=== PATIENT | female | born 1935 | race Caucasian/White ===

== ENCOUNTER → 2018-11-12 | Outpatient (CLI) | payer MEDICARE, BC ==
--- NOTE | 2018-11-12 15:50 | Diagnostic Imaging Report ---
INDICATION: Dry cough. TIME OF EXAM: 2:02 PM COMPARISON: No prior studies are available for comparison. FINDINGS: The heart size is normal. Lungs are hyperinflated consistent with COPD. No infiltrates are seen. Vague density in the right upper lobe is seen overlying the right sixth posterior rib. It is uncertain if this density arises from the rib or within the pulmonary parenchyma. Tiny density left upper lobe is also seen peripherally, indeterminate. There is no effusion. No pneumothorax is detected. IMPRESSION: Bilateral densities, perhaps granulomas. Followup could be performed to confirm stability. No acute features detected. Dictated by: Dictated on workstation # [id number]
== END ==
LOC: RAD FS 13:43
PROVIDERS: ATTEND Otolaryngology Otolaryngology/Facial Plastic Surgery
DX: J98.4 Other disorders of lung (principal); R05 Cough
CPT/HCPCS: 71046

== ENCOUNTER → 2022-03-11 | Outpatient (CLI) | payer MEDICARE ==
--- NOTE | 2022-03-11 11:36 | Diagnostic Imaging Report ---
INDICATION: Low back pain. Time of Exam: 10:54 AM 3 views of the lumbar spine were obtained. Curvature and alignment is normal. There is a compression fracture deformity involving the L4 vertebral body, age indeterminate. No retropulsion is seen. Remaining lumbar vertebrae show normal stature. There is severe multilevel degenerative disc and facet disease. Abdominal aorta is calcified. IMPRESSION: Severe multilevel lumbar spondylosis. There is a compression deformity of L4 vertebral body, age indeterminate. If there is concern for acuity, MRI could be performed for further evaluation. Dictated by: Dictated on workstation # [id number]
== END ==
LOC: RAD FS 10:42
PROVIDERS: ATTEND Nurse Practitioner Family
DX: M48.56XA Collapsed vertebra, not elsewhere classified, lumbar region, initial encounter for fracture (principal); M47.816 Spondylosis without myelopathy or radiculopathy, lumbar region
CPT/HCPCS: 72100

== ENCOUNTER 2022-03-31 09:02 | Emergency (ER) | payer MEDICARE ==
[~2022-03-31] VITALS: Ht 160 cm; Wt 54.0 kg
[2022-03-31] MEDS ORDERED: KETOROLAC 30 MG/ML VIAL IVP STA (09:16)
--- NOTE | 2022-03-31 09:24 | ED Fall/Injury ---
General Chief Complaint: Back Problems Stated Complaint: FALL Nursing Triage Note: PT REPORTS SHE WAS GETTING READY TO GO DO SOME YARD WORK AND SHE GOT DIZZY AND FELL. SHE DENIES PAIN UNLESS SHE MOVES. SHE REPORTS LOW BACK PAIN THAT RADIATES INTO HER LEFT LEG. Source: patient, EMS History of Present Illness Date Seen by Provider: Mar 31, 2022 Time Seen by Provider: 09:02 Initial Comments 86-year-old female presenting by EMS with complaints of low back pain after standing height fall at home. She states that she has not had much appetite and not been eating or drinking well since her recently . She initially had some pain going into her left leg with sitting up however she denies that now. She states that when she tries to stand or bear weight she has pain in the right greater than left low back and hip. She denies any pain or burning with urination. She has had no head injury or loss of consciousness. She denies having any chest pain, cough, shortness of breath, abdominal pain, fever, chills. She did have an episode of vomiting after she fell. She states that what she vomited was more mucus. She has had some constipation and blames it on not eating or drinking much since her passed. She states she has had other falls and that it is not uncommon for her to get weak and fall to ground. She had imaging of her Lumbar spine March 11 that showed age indeterminate compression fracture of the L4 vertebra. Location Injury Occurred: home Occurred: just prior to arrival Severity: moderate Injuries/Pain Location: back (low back and R greater than L hip pain, worse with standing) Context: other (states she just felt weak and fell to the ground. She denies chest pain, dizziness, light headed sensation.) Loss of Consciousness: no loss of consciousness Modifying Factors: Worse With Movement Associated Symptoms (Fall): No Abdominal Pain, No Chest Pain, No Confusion, No Dizziness, No Headache, No Lightheadedness, No Muscle Spasms; Nausea/Vomiting (x 1 after fall); No Neck Pain, No Ringing in Ears, No Seizures, No Shortness of Air, No Slurred Speech; Trouble Walking (due to low back pain and bilateral hip pain); No Vision Changes Allergies and Home Medications Allergies Coded Allergies: No Known Drug Allergies (Unverified , 03/31/22) Patient Home Medication List Home Medication List Reviewed: Yes Review of Systems Review of Systems Constitutional: No chills, No diaphoresis, No dizziness, No fever Eyes: Denies Blurred Vision, Denies Photophobia, Denies Vision Changes Ears, Nose, Mouth, Throat: denies ear pain, denies ear discharge, denies nose pain, denies nose discharge, denies epistaxis Respiratory: No cough, No hemoptysis, No short of breath, No stridor, No wheezing Cardiovascular: No chest pain Gastrointestinal: see HPI; No abdominal pain, No diarrhea; loss of appetite Genitourinary: No dysuria, No frequency Musculoskeletal: see HPI Skin: No change in color, No rash Psychiatric/Neurological: Denies Headache, Denies Numbness, Denies Paresthesia Past Nuqgvvi-[id number]-Xgeoqt Hx Patient Social History Tobacco Use?: No Use of E-Cig and/or Vaping dev: No Substance use?: No Alcohol Use?: No Pt feels they are or have been: No Immunizations Up To Date First/Initial COVID19 Vaccinat: 2020 Second COVID19 Vaccination Ronn: 2020 COVID19 Vaccine Civil Engineering Project Manager: KEIRA Past Medical History Surgeries: Yes Orthopedic (bilateral hips, lumbar spine) Physical Exam Vital Signs Vital Signs - First Documented 03/31/22 09:07 Temp 36.8 Pulse 52 Resp 20 B/P (MAP) 169/59 (95) Pulse Ox 94 O2 Delivery Room Air Capillary Refill : Less Than 3 Seconds Height, Weight, BMI Height: '" Weight: lbs. oz. kg; 21.00 BMI Method: General Appearance: WD/WN, no apparent distress HEENT: PERRL/EOMI, pharynx normal Neck: non-tender, full range of motion, supple, normal inspection Cardiovascular: normal peripheral pulses, regular rate, rhythm Respiratory: chest non-tender, lungs clear, normal breath sounds, no respiratory distress, no accessory muscle use Gastrointestinal: normal bowel sounds, non tender, soft, no pulsatile mass Rectal: deferred Back: no CVA tenderness, no vertebral tenderness; No muscle spasm, No vertebral tenderness; other (right lower back pain with palpation over iliac crest) Extremities: normal range of motion, non-tender, no pedal edema, no calf tenderness, normal capillary refill Neurologic/Psychiatric: contracting analyst II-XII nml as tested, no motor/sensory deficits, alert, oriented x 3 Skin: normal color, warm/dry Luis Armando Coma Score Best Eye Response: (4) Open Spontaneously Best Verbal Response: (5) Oriented Best Motor Response: (6) Obeys Commands [place] Total: 15 Progress/Results/Core Measures Results/Orders Lab Results Laboratory Tests Test 03/31/22 09:15 03/31/22 09:45 Range/Units White Blood Count 7.2 4.3-11.0 10^3/uL Red Blood Count 3.80 3.80-5.11 10^6/uL Hemoglobin 12.1 11.5-16.0 g/dL Hematocrit 37 35-52 % Mean Corpuscular Volume 98 80-99 fL Mean Corpuscular Hemoglobin 32 25-34 pg Mean Corpuscular Hemoglobin Concent 33 32-36 g/dL Red Cell Distribution Width 14.2 10.0-14.5 % Platelet Count 219 130-400 10^3/uL Mean Platelet Volume 10.5 9.0-12.2 fL Immature Granulocyte % (Auto) 1 % Neutrophils (%) (Auto) 58 42-75 % Lymphocytes (%) (Auto) 33 12-44 % Monocytes (%) (Auto) 9 0-12 % Eosinophils (%) (Auto) 0 0-10 % Basophils (%) (Auto) 0 0-10 % Neutrophils # (Auto) 4.2 1.8-7.8 10^3/uL Lymphocytes # (Auto) 2.4 1.0-4.0 10^3/uL Monocytes # (Auto) 0.6 0.0-1.0 10^3/uL Eosinophils # (Auto) 0.0 0.0-0.3 10^3/uL Basophils # (Auto) 0.0 0.0-0.1 10^3/uL Immature Granulocyte # (Auto) 0.0 0.0-0.1 10^3/uL Sodium Level 138 135-145 MMOL/L Potassium Level 4.5 3.6-5.0 MMOL/L Chloride Level 102 98-107 MMOL/L Carbon Dioxide Level 23 21-32 MMOL/L Anion Gap 13 5-14 MMOL/L Blood Urea Nitrogen 35 H 7-18 MG/DL Creatinine 1.74 H 0.60-1.30 MG/DL Estimat Glomerular Filtration Rate 28 BUN/Creatinine Ratio 20 Glucose Level 108 H 70-105 MG/DL Calcium Level 9.0 8.5-10.1 MG/DL Corrected Calcium 8.9 8.5-10.1 MG/DL Total Bilirubin 0.3 0.1-1.0 MG/DL Aspartate Amino Transf (AST/SGOT) 27 5-34 U/L Alanine Aminotransferase (ALT/SGPT) 20 0-55 U/L Alkaline Phosphatase 64 40-136 U/L Total Protein 6.8 6.4-8.2 GM/DL Albumin 4.1 3.2-4.5 GM/DL Lipase 74 8-78 U/L Urine Color YELLOW Urine Clarity SL CLOUDY Urine pH 5.0 5-9 Urine Specific [place] 1.020 1.016-1.022 Urine Protein NEGATIVE NEGATIVE Urine Glucose (UA) NEGATIVE NEGATIVE Urine Ketones NEGATIVE NEGATIVE Urine Nitrite NEGATIVE NEGATIVE Urine Bilirubin NEGATIVE NEGATIVE Urine Urobilinogen 0.2 < = 1.0 MG/DL Urine Leukocyte Esterase 1+ H NEGATIVE Urine RBC (Auto) NEGATIVE NEGATIVE Urine RBC NONE /HPF Urine WBC 0-2 /HPF Urine Squamous Epithelial Cells 0-2 /HPF Urine Crystals NONE /LPF Urine Bacteria TRACE /HPF Urine Casts PRESENT /LPF Urine Hyaline Casts 0-2 H /LPF Urine Mucus NEGATIVE /LPF Urine Culture Indicated NO My Orders Orders - CHINTAN GAR MD Comprehensive Metabolic Panel (03/31/22 09:16) Lipase (03/31/22 09:16) Ua Culture If Indicated (03/31/22 09:16) Ed Iv/Invasive Line Start (03/31/22 09:16) Cbc With Automated Diff (03/31/22 09:16) Ketorolac Injection (Toradol Injection) (03/31/22 09:16) Ct Lumbar Spine Wo (03/31/22 09:16) Ct Pelvis Wo (03/31/22 09:16) Vital Signs/I&O 03/31/22 09:07 Temp 36.8 Pulse 52 Resp 20 B/P (MAP) 169/59 (95) Pulse Ox 94 O2 Delivery Room Air Blood Pressure Mean: 95 Progress Progress Note #1: Progress Note Check basic labs and image her lumbar spine and pelvis to evaluate for possible acute compression fracture or complication with her hardware from prior hip replacement. Try Toradol 15 mg IV x1 to help with pain. Differential diagnosis includes compression fracture, UTI, dehydration, electrolyte imbalance Progress Note #2: Time: 09:51 Progress Note Labs shows no acute significant abnormality on the CBC. Chemistry appear stable other than she does have an elevated BUN of 35 and creatinine of 1.79. Unknown if this is new or chronic. Awaiting urinalysis and CT scan of the lumbar spine and pelvis. Progress Note #3: Time: 10:[address] of the lumbar spine shows chronic compression fracture of L2, L4, S1. There is no acute fractures. She has severe degenerative changes as well. Urinalysis was slightly concentrated with a specific gravity of 1.020. She had 1+ leukocyte esterase but no bacteria, white blood cells, nitrates. Will encourage patient to drink more fluids and check back with call clinic about her renal insufficiency and the compression fractures Progress Note #4: Time: :[address] of the pelvis was read out as no acute fracture or hardware malfunction. She had some presacral soft tissue swelling but no definite acute fracture. The degenerative changes of the lumbar spine and sacral area were evident again on this imaging. Update patient and spiritual counselor on follow-up with the primary care provider about her bradycardia, renal insufficiency and chronic compression fractures in her spine. Even with sinus bradycardia her blood pressure has been stable or elevated. She has never been hypotensive here in the ED. She was able to get up from the bed with some assistance and get to the commode. Diagnostic Imaging Diagonstic Imaging: CT Plain Films/CT/US/NM/MRI: pelvis (And lumbar spine) Comments NAME: JONO NOOYLA I MED REC#: [id number] PT STATUS: REG ER : 1935 PHYSICIAN: CHINTAN GAR MD ADMIT DATE: 03/31/22/ER FS Draft Date of Exam:03/31/22 CT LUMBAR SPINE WO CLINICAL INDICATION: Patient is status post post fall. Patient with low back pain and bilateral hip pain right side greater than left. EXAM: Axial CT scan of the lumbar spine performed without IV contrast. Sagittal and coronal reformatted images are created. Auto Exposure Controls were utilized during the CT exam to meet ALARA standards for radiation dose reduction. COMPARISON: X-ray of the lumbar spine dated 03/11/2022. FINDINGS: There is a transitional lumbosacral vertebra which will be designated as S1. There is no acute lumbar spine fracture or dislocation. There is a chronic compression deformity involving the L2, L4, and S1 vertebra. There is sclerosis involving the upper aspect of S1 vertebra. There are hypertrophic spurs throughout cervical spine and facet arthropathy. There are flowing osteophytes seen involving the thoracolumbar region. There is no significant paraspinal soft tissue abnormality visualized. Lung bases are clear. There is a partially visualized cyst involving the right kidney measuring at least 4.7 cm. L1-L2: There is subtle grade 1 retrolisthesis of L1 on L2. There is diffuse disk bulge. There is mild right neural foramen narrowing and mild to moderate left neural foramen narrowing. There is no significant central canal stenosis. L2-L3: There is diffuse disk bulge and severe bilateral facet arthropathy. There is severe central canal stenosis and severe bilateral neural foramen narrowing. L3-L4: There is diffuse disk bulge with moderate to severe loss of disk space height. There is severe bilateral facet arthropathy/hypertrophy. There is at least moderate central canal stenosis. There is mild to moderate right neural foramen narrowing and severe left neural foramen narrowing. L4-L5: There is diffuse disk bulge with mild to moderate loss of disk space height. There is severe bilateral facet arthropathy/hypertrophy. There is severe bilateral neural foramen narrowing. There is at least mild central canal narrowing. L5-S1: There is no significant central canal or neural foramen narrowing. IMPRESSION: 1: There is no acute lumbar spine fracture. 2: There are chronic compression fracture deformities involving the L2, L4, and S1 vertebra. 3: There is severe lumbar spine degenerative disease. Dictated on workstation # [id number] Dict: 03/31/22 0950 Trans: 03/31/[address] [facility] [id number] Interpreted by: MEME BLANK MD Electronically signed by: NAME: JONO NOYOLA I [facility] REC#: [id number] PT STATUS: REG ER : 1935 PHYSICIAN: CHINTAN GAR MD ADMIT DATE: 03/31/22/ER FS Draft Date of Exam:03/31/22 CT PELVIS WO PROCEDURE: CT pelvis without contrast. TECHNIQUE: Multiple contiguous axial images were obtained through the pelvis without the use of intravenous contrast. Sagittal and coronal reformations were performed. Auto Exposure Controls were utilized during the CT exam to meet ALARA standards for radiation dose reduction. INDICATION: Fall with pelvic and bilateral hip pain. There has been total hip arthroplasty performed bilaterally. Though artifact in this region does limit assessment. There is rather advanced degenerative findings in the lower lumbar spine with advanced disc bulging and probable protrusion at the L4-L5 level. There is irregularity in the right sacral ala, which may be due to old fracture. No acute fracture line is identified. Sacroiliac joints and pubic symphysis are intact. There is mild density in the presacral space which may be due to edema or contusion. No definite bladder disruption or irregularity is identified. IMPRESSION: Degenerative findings and previous bilateral total hip arthroplasty without acute osseous abnormality identified. There is questionable mild edema or contusion in the presacral space without definite acute sacral fracture identified. Advanced degenerative findings are seen in the visualized lumbar spine. Please refer to separately dictated lumbar spine report. Dictated on workstation # [id number] Dict: 03/31/22 1044 Trans: 03/31/22 1050 CV [id number] Interpreted by: CANDACE PERKINS MD Electronically signed by: Departure Impression Primary Impression: Acute exacerbation of chronic low back pain Additional Impressions: Fall at home Qualified Codes: W19.XXXA - Unspecified fall, initial encounter; Y92.009 - Unspecified place in unspecified non-institutional (private) residence as the place of occurrence of the external cause Compression fracture of L2 vertebra with routine healing Compression fracture of L4 vertebra with routine healing Closed compression fracture of sacrum with routine healing Degenerative joint disease (DJD) of lumbar spine Qualified Codes: M47.816 - Spondylosis without myelopathy or radiculopathy, lumbar region Renal insufficiency Sinus bradycardia seen on monitor tech Disposition: 01 HOME, SELF-CARE Condition: Stable Departure-Patient Inst. Decision time for Depature: 10:58 Referrals: GWENDOLYN PHELPS APRN (PCP) Primary Care Physician Call to set up a follow up appointment from the ER. Check with them about your heart rate being 45-60 beats per minute as well as your Creatinine slightly elevated to 1.7. They can also help with referring you to pain management if needed for Compression Fractures of 2nd and 4th Lumbar Vertebra and the Sacrum. [facility] (Family) Primary Care Physician Patient Instructions: Bradycardia (DC), Chronic Kidney Disease (DC), Degenerative Disc Disease ED, Preventing Falls ED, Vertebral Compression Fracture ED Add. Discharge Instructions: Your blood work showed some renal insufficiency which could just be related to your hydration. Try to drink plenty of fluids and check back with the clinic to see if they need to recheck your blood work. Today your creatinine was 1.7. Normally this would be 1.[address] scan of the pelvis and lumbar spine showed compression fractures of the second and fourth lumbar vertebrae as well as the sacrum. These all appear chronic and do not appear acute. There is degenerative arthritic changes of the spine. Your heart rate has been slightly slow or bradycardic. Check with your primary care provider and the clinic about this. If it is a new finding they may want to have you get some additional testing as an outpatient. Take Acetaminophen 650 mg every 4-6 hours as needed for pain All discharge instructions reviewed with patient and/or family. Voiced understanding. CHINTAN GAR MD Mar 31, 2022 09:23
[2022-03-31 09:25] LABS: BASOPHILS % (AUTO) 0 % (0-10); EOSINOPHILS % (AUTO) 0 % (0-10); HEMATOCRIT 37 % (35-52); HEMOGLOBIN 12.1 g/dL (11.5-16.0); LYMPHOCYTES # (AUTO) 2.4 10^3/uL (1.0-4.0); LYMPHOCYTES % (AUTO) 33 % (12-44); MEAN CORPUSCULAR HEMOGLOBIN 32 pg (25-34); MEAN CORPUSCULAR HGB CONC 33 g/dL (32-36); MEAN CORPUSCULAR VOLUME 98 fL (80-99); MEAN PLATELET VOLUME 10.5 fL (9.0-12.2); MONOCYTES # (AUTO) 0.6 10^3/uL (0.0-1.0); MONOCYTES % (AUTO) 9 % (0-12); NEUTROPHILS # (AUTO) 4.2 10^3/uL (1.8-7.8); NEUTROPHILS % (AUTO) 58 % (42-75); PLATELET COUNT 219 10^3/uL (130-400); WHITE BLOOD COUNT 7.2 10^3/uL (4.3-11.0)
[2022-03-31 09:47] LABS: BILIRUBIN,TOTAL 0.3 MG/DL (0.1-1.0); CREATININE SERUM 1.74 MG/DL (0.60-1.30); POTASSIUM 4.5 MMOL/L (3.6-5.0); TOTAL PROTEIN 6.8 GM/DL (6.4-8.2)
[2022-03-31 09:48] LABS: ALBUMIN 4.1 GM/DL (3.2-4.5)
[2022-03-31 09:52] LABS: BILIRUBIN,URINE NEGATIVE (NEGATIVE); CLARITY,URINE SL CLOUDY; COLOR,URINE YELLOW; GLUCOSE, URINE (UA) NEGATIVE (NEGATIVE); KETONES,URINE NEGATIVE (NEGATIVE); LEUKOCYTE ESTERASE ,URINE 1+ (NEGATIVE); NITRITE,URINE NEGATIVE (NEGATIVE); PROTEIN,URINE NEGATIVE (NEGATIVE)
[2022-03-31 09:59] LABS: BACTERIA,URINE TRACE /HPF; HYALINE CASTS, URINE 0-2 /LPF; SQUAMOUS EPITHELIAL CELL,UR 0-2 /HPF; WBC,URINE 0-2 /HPF
--- NOTE | 2022-03-31 10:05 | Diagnostic Imaging Report ---
CLINICAL INDICATION: Patient is status post post fall. Patient with low back pain and bilateral hip pain right side greater than left. EXAM: Axial CT scan of the lumbar spine performed without IV contrast. Sagittal and coronal reformatted images are created. Auto Exposure Controls were utilized during the CT exam to meet ALARA standards for radiation dose reduction. COMPARISON: X-ray of the lumbar spine dated 03/11/2022. FINDINGS: There is a transitional lumbosacral vertebra which will be designated as S1. There is no acute lumbar spine fracture or dislocation. There is a chronic compression deformity involving the L2, L4, and S1 vertebra. There is sclerosis involving the upper aspect of S1 vertebra. There are hypertrophic spurs throughout cervical spine and facet arthropathy. There are flowing osteophytes seen involving the thoracolumbar region. There is no significant paraspinal soft tissue abnormality visualized. Lung bases are clear. There is a partially visualized cyst involving the right kidney measuring at least 4.7 cm. L1-L2: There is subtle grade 1 retrolisthesis of L1 on L2. There is diffuse disk bulge. There is mild right neural foramen narrowing and mild to moderate left neural foramen narrowing. There is no significant central canal stenosis. L2-L3: There is diffuse disk bulge and severe bilateral facet arthropathy. There is severe central canal stenosis and severe bilateral neural foramen narrowing. L3-L4: There is diffuse disk bulge with moderate to severe loss of disk space height. There is severe bilateral facet arthropathy/hypertrophy. There is at least moderate central canal stenosis. There is mild to moderate right neural foramen narrowing and severe left neural foramen narrowing. L4-L5: There is diffuse disk bulge with mild to moderate loss of disk space height. There is severe bilateral facet arthropathy/hypertrophy. There is severe bilateral neural foramen narrowing. There is at least mild central canal narrowing. L5-S1: There is no significant central canal or neural foramen narrowing. IMPRESSION: 1: There is no acute lumbar spine fracture. 2: There are chronic compression fracture deformities involving the L2, L4, and S1 vertebra. 3: There is severe lumbar spine degenerative disease. Dictated by: Dictated on workstation # [id number]
--- NOTE | 2022-03-31 10:51 | Diagnostic Imaging Report ---
PROCEDURE: CT pelvis without contrast. TECHNIQUE: Multiple contiguous axial images were obtained through the pelvis without the use of intravenous contrast. Sagittal and coronal reformations were performed. Auto Exposure Controls were utilized during the CT exam to meet ALARA standards for radiation dose reduction. INDICATION: Fall with pelvic and bilateral hip pain. There has been total hip arthroplasty performed bilaterally. Though artifact in this region does limit assessment. There is rather advanced degenerative findings in the lower lumbar spine with advanced disc bulging and probable protrusion at the L4-L5 level. There is irregularity in the right sacral ala, which may be due to old fracture. No acute fracture line is identified. Sacroiliac joints and pubic symphysis are intact. There is mild density in the presacral space which may be due to edema or contusion. No definite bladder disruption or irregularity is identified. IMPRESSION: Degenerative findings and previous bilateral total hip arthroplasty without acute osseous abnormality identified. There is questionable mild edema or contusion in the presacral space without definite acute sacral fracture identified. Advanced degenerative findings are seen in the visualized lumbar spine. Please refer to separately dictated lumbar spine report. Dictated by: Dictated on workstation # [id number]
[2022-03-31 11:15] VITALS: BP 164/46
== END 2022-03-31 11:16 | disposition home or self-care (01) ==
LOC: EDUNIT# 09:02 → ER FS 09:03
DX: M54.50 Low back pain, unspecified (principal); S32.020D Wedge compression fracture of second lumbar vertebra, subsequent encounter for fracture with routine healing; S32.040D Wedge compression fracture of fourth lumbar vertebra, subsequent encounter for fracture with routine healing; S32.10XD Unspecified fracture of sacrum, subsequent encounter for fracture with routine healing; M47.816 Spondylosis without myelopathy or radiculopathy, lumbar region; N28.9 Disorder of kidney and ureter, unspecified; R00.1 Bradycardia, unspecified; R94.4 Abnormal results of kidney function studies; W18.30XA Fall on same level, unspecified, initial encounter; Y92.008 Other place in unspecified non-institutional (private) residence as the place of occurrence of the external cause
CPT/HCPCS: 36415; 72131; 72192; 80053; 81000; 83690; 85025